=== PATIENT | female | born 1960 | race Caucasian/White ===

== ENCOUNTER 2016-05-20 09:28 | Emergency (ER) | payer OTHER ==
[~2016-05-20] VITALS: Ht 154.9 cm; Wt 81.6 kg
[~2016-05-20 09:28] MED LIST: ALPRAZOLAM2 MG PO; AMOXICILLIN500 M2 PO; AUGMENTIN 875 M1 TAB PO; BUPROPION HCL150 M2 PO; CLONAZEPAM0.5 MG PO; CYMBALTA60 M1 PO; FLEXERIL10 MG PO; GEMFIBROZIL600 M1 PO; GLUCOPHAGE500 M1 PO; IBUPROFEN800 M1 PO; LIORESAL 10MG T10 MG PO; LIPITOR40 M1 PO; LISINOPRIL10 MG PO; LOSARTAN POTAS100 M1 PO; MOTRIN 600 MG600 MG PO; NEURONTIN400 M1 PO; NEXIUM40 M1 PO; NORFLEX100 MG PO; NORVASC5 M1 PO; NOVAPLUS V0.09 MG/Ac INH; PANTOPRAZOLE SO40 MG PO; PERCOCET 325 MG1 TA2 PO; PERCOCET 5-3251 EACH PO; PROAIR HFA0.09 MG/Ac INH; QUETIAPINE FUMA50 M1 PO; REMERON 15MG TA15 MG PO; ROBITUSSIN W/CO10 ML PO; SYMBICORT 16010.2 GM INH; TESSALON PERLE100 MG PO; TORADOL10 MG PO; TRAMADOL50 MG PO; TRAZODONE50 MG PO; VOLTAREN75 MG PO; ZETIA10 M1 PO; ZITHROMAX Z-PA250 M1 PO; ZOLPIDEM TARTRA10 MG PO
[2016-05-20 09:32] VITALS: BP 191/88
--- NOTE | 2016-05-20 09:48 | ED GENERAL ADULT ---
History of Present Illness General Chief Complaint: General Adult Stated Complaint: MED REFILL Source: patient, old records Exam Limitations: no limitations Vital Signs & Intake/Output Vital Signs & Intake/Output Vital Signs Date Time Temp Pulse Resp B/P Pulse O2 O2 Flow FiO2 Ox Delivery Rate 05/20 0932 97.9 122 18 191/88 97 Room Air Allergies Coded Allergies: fish derived (Severe, FACIAL EDEMA 06/18/15) No Known Drug Allergies (03/25/16) Uncoded Allergies: MAYONNAISE (UNKNOWN 11/03/14) Reconcile Medications Albuterol Sulfate (Ventolin Hfa) 0.09 MG/Actuation STONEY 1-2 PUFF INH Q6P PRN COUGH/SOB Amlodipine (Norvasc 5MG Tab) 5 MG TAB 1 TAB PO DAILY BP (Reported) Atorvastatin Calcium (Lipitor) 40 MG TABLET 1 TAB PO DAILY CHOLESTEROL ( Reported) Budesonide/Formoterol Fumarate (Symbicort 160-4.5 Mcg Inhaler) 160 MCG-4.5 MCG/ ACTUATION HFA.AER.AD 2 PUF INH BID COPD (Reported) DULOXETINE HCL (Cymbalta) 60 MG CAPSULE.DR 1 CAP PO DAILY MENTAL HEALTH ( Reported) Duloxetine HCl 30 MG CAPSULE.DR 1 CAP PO DAILY depression/anxiety Esomeprazole (Nexium) 40 MG CAPSULE.DR 1 CAP PO DAILY GI (Reported) Ezetimibe (Zetia) 10 MG TABLET 1 TAB PO DAILY CHOLESTEROL (Reported) Gabapentin (Neurontin) 400 MG CAP 1 CAP PO BID MENTAL HEALTH (Reported) Gabapentin 100 MG CAPSULE 2 CAP PO BID PSYCH Gemfibrozil 600 MG TABLET 1 TAB PO BID CHOLESTEROL (Reported) Ibuprofen 800 MG TABLET 1 TAB PO Q6PRN PRN pain Losartan Potassium 100 MG TAB 1 TAB PO DAILY HEART (Reported) METFORMIN HCL (Metformin Hydrochloride) 500 MG TABLET 1 TAB PO DAILY BLOOD SUGAR (Reported) Oxycodone HCl/Acetaminophen (Percocet 5-325 MG Tablet) 5 MG-325 MG TABLET 1 TAB PO Q6P severe pain Quetiapine Fumarate 50 MG TABLET 3 TAB PO QPM SLEEP (Reported) Quetiapine Fumarate 100 MG TABLET 1 TAB PO QPM DEPRESSION Quetiapine Fumarate 50 MG TABLET 1 TAB PO QPM DEPRESSION Triage Note: PT STATES THAT SHE WAS TOLD BY [facility] TO COME TO ER AND GET 1 WEEK SUPPLY OF HER MEDS, PT HAS APPOINTMENT NEXT WEEK. STATES THAT SHE HAD STOMACH BUG AND MISSED HER LAST APPOINTMENT AND THE MD WILL NOT PRESCRIBE THEM TO HER INTILL NEXT WEEK. Triage Nurses Notes Reviewed? yes Onset: Gradual Duration: week(s): (2) Timing: recent history Injury Environment: home Severity: moderate Severity Numbers: 6 No Modifying Factors: none HPI: Patient is a 56-year-old female with history of anxiety, depression presenting to the emergency department requesting refills of medications. She has an appointment next Wednesday by her clinician told her to come into the emergency department for refills of her medications cut she's been off of them for 2 weeks. Patient reports that she starting to have racing thoughts. Denies any suicidal or homicidal ideation. Denies any nausea or vomiting or fevers. No visual changes. Denies any elevated blood pressure. Denies any abdominal pain and cramping. No urinary symptoms. Denies any hallucinations. Denies any drug or alcohol use. She is looking for a one-week supply of her medications. (ALEXI HANNAH) Past History Travel History Traveled to [place] past 21 day No Medical History Any Pertinent Medical History? see below for history Neurological: SEVERE HEADACHES EENT: NONE Cardiovascular: hypertension, hyperlipidemia, PALPITATIONS 05-10-14 Respiratory: NONE Gastrointestinal: NONE Hepatic: NONE Renal: NONE Musculoskeletal: left ankle and knee sprain MAY 2014 Psychiatric: depression, CUTTING ? 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 No (ALEXI HANNAH) Review of Systems Review of Systems Constitutional: Reports: no symptoms. Comments Review of systems: See HPI, All other systems negative. Constitutional, no chills fever or weight loss HEENT: No visual changes no sore throat no congestion Cardiovascular: No chest pain ,palpitation Skin, no jaundice no rashes Respiratory: No dyspnea cough sputum or hemoptysis GI: No nausea no vomiting : No dysuria No hematuria Muscle skeletal: no back pain, no neck pain, Neurologic: No numbness no confusion no gan Psych: Racing thoughts at times, no suicidal or homicidal ideation Heme/endocrine: No bruising no bleeding no polyuria or polydipsia Immunology: No splenectomy or history of AIDS (ALEXI HANNAH) Physical Exam Physical Exam General Appearance: well developed/nourished, no apparent distress, alert, awake , comfortable Comments: Well-developed well-nourished person in no acute distress HEENT: Nose is atraumatic. Neck: Normal inspection Back: Nontender Cardiovascular: normal JVP Respiratory: No respiratory distress. Extremity: No edema Neuro: Alert oriented x3 Skin: No appreciable rash on exposed skin, skin is warm and dry. Psych: Mood and affect is normal, memory and judgment is normal. Core Measures ACS in differential dx? No CVA/TIA Diagnosis: No Severe Sepsis Present: No Septic Shock Present: No (ALEXI HANNAH) Progress Differential Diagnoses I considered the following diagnoses in my evaluation of the patient: Medication refill, anxiety, depression Plan of Care: Patient given one week's supply of medication. She'll follow up with PCP. Patient nontoxic. Initial ED EKG: none (ALEXI HANNAH) Departure Departure Time of Disposition: 951 Disposition: HOME OR SELF CARE Condition: Stable Clinical Impression Primary Impression: Medication refill Referrals: GUME MULLER,SHAUNA Samuels (PCP/Family) Additional Instructions: Follow-up with your clinician, keep appointment for next Wednesday. Return for worsening symptoms or concerns. Take medications as prescribed. Departure Forms: Customer Survey General Discharge Information Prescriptions: Current Visit Scripts Duloxetine HCl 1 CAP PO DAILY #14 CAP Gabapentin 2 CAP PO BID #32 CAP Quetiapine Fumarate 1 TAB PO QPM #14 TAB Quetiapine Fumarate 1 TAB PO QPM #14 TAB (ALEXI HANNAH) PA/RUBBER TIRE CURER Co-Sign Statement Statement: ED Attending supervision documentation- [X] I saw and evaluated the patient. I have also reviewed all the pertinent lab results and diagnostic results. I agree with the findings and the plan of care as documented in the PA's/RUBBER TIRE CURER's documentation. [] I have reviewed the ED Record and agree with the PA's/RUBBER TIRE CURER's documentation. [] Additions or exceptions (if any) to the PAs/RUBBER TIRE CURER's note and plan are summarized below: [] (ROSSI MCGEE DO) Critical Care Note Critical Care Note Critical Care Time: non-applicable (BENEDICTO SOTELO,ALEXI)
[2016-05-20] MEDS ORDERED: DULOXETINE HCL30 MG PO (09:57)
[2016-05-20] MEDS ORDERED: QUETIAPINE FUM100 M1 PO (09:57)
[2016-05-20] MEDS ORDERED: GABAPENTIN100 M2 PO (09:57)
[2016-05-20] MEDS ORDERED: QUETIAPINE FUMA50 M1 PO (09:57)
== END 2016-05-20 10:00 ==
LOC: ERH 09:28
DX: Z76.0 Encounter for issue of repeat prescription (principal)
CPT/HCPCS: 99281

== ENCOUNTER 2016-05-27 08:58 | Emergency (ER) | payer OTHER ==
[~2016-05-27] VITALS: Ht 154.9 cm; Wt 81.6 kg
[~2016-05-27 08:58] MED LIST changes: +DULOXETINE HCL30 MG PO; +GABAPENTIN100 M2 PO; +QUETIAPINE FUM100 M1 PO
[2016-05-27 09:02] VITALS: BP 166/93
--- NOTE | 2016-05-27 09:27 | ED UPPER/LOWER EXTREMITY COMPL ---
History of Present Illness General Chief Complaint: Low Back Pain/Injury Stated Complaint: LFT LEG PAIN Source: patient, old records Exam Limitations: no limitations Vital Signs & Intake/Output Vital Signs & Intake/Output Vital Signs Date Time Temp Pulse Resp B/P Pulse O2 O2 Flow FiO2 Ox Delivery Rate 05/27 0902 98.2 87 16 166/93 97 Room Air Allergies Coded Allergies: fish derived (Severe, FACIAL EDEMA 06/18/15) No Known Drug Allergies (03/25/16) Uncoded Allergies: MAYONNAISE (UNKNOWN 11/03/14) Reconcile Medications Albuterol Sulfate (Ventolin Hfa) 90 MCG HFA.AER.AD 2 PUF INH Q4-6 PRN PRN COUGH SOB (Reported) Amlodipine Besylate (Norvasc) 5 MG TABLET 1 TAB PO DAILY BP (Reported) Atorvastatin Calcium (Lipitor) 40 MG TABLET 1 TAB PO DAILY CHOLESTEROL ( Reported) Baclofen 10 MG TABLET 1 TAB PO TIDPRN PRN muscle spasm/strain Budesonide/Formoterol Fumarate (Symbicort 160-4.5 Mcg Inhaler) 160 MCG-4.5 MCG/ ACTUATION HFA.AER.AD 2 PUF INH BID COPD (Reported) Duloxetine HCl (Cymbalta) 60 MG CAPSULE.DR 1 CAP PO DAILY MENTAL HEALTH ( Reported) Duloxetine HCl 30 MG CAPSULE.DR 1 CAP PO DAILY depression/anxiety Esomeprazole (Nexium) 40 MG CAPSULE.DR 1 CAP PO DAILY GI (Reported) Ezetimibe (Zetia) 10 MG TABLET 1 TAB PO DAILY CHOLESTEROL (Reported) Gabapentin (Neurontin) 400 MG CAPSULE 1 CAP PO BID MENTAL HEALTH (Reported) Gabapentin 100 MG CAPSULE 2 CAP PO BID PSYCH Gemfibrozil 600 MG TABLET 1 TAB PO BID CHOLESTEROL (Reported) Ibuprofen 800 MG TABLET 1 TAB PO Q6PRN PRN pain Losartan Potassium 100 MG TABLET 1 TAB PO DAILY HEART (Reported) Metformin Hydochloride (Glucophage) 500 MG TABLET 1 TAB PO DAILY BLOOD SUGAR (Reported) Oxycodone HCl/Acetaminophen (Percocet 5-325 MG Tablet) 5 MG-325 MG TABLET 1 TAB PO Q6P severe pain Quetiapine Fumarate 50 MG TABLET 3 TAB PO QPM SLEEP (Reported) Quetiapine Fumarate 100 MG TABLET 1 TAB PO QPM DEPRESSION Quetiapine Fumarate 50 MG TABLET 1 TAB PO QPM DEPRESSION Triage Note: PT STATES SHE HAS LEFT LEG PAIN AND NEEDS A REFERAL TO [facility] Triage Nurses Notes Reviewed? yes Onset: month Duration: week(s):, constant, continues in ED Timing: recent history Severity: mild Pain/Injury Location: Left: Knee. Method of Injury: fall Modifying Factors: Improves With: pain medication. Worsens With: movement. LMP (ages 10-50): post menopausal : No Patient currently breastfeeds: No HPI: 6 weeks prior to admission patient fell sustaining left foot fractures. She complains of continued left posterior knee pain described as sharp worse with movement turning bending improved with rest medication. Denies new injury fever chills nausea vomiting diarrhea abdominal pain chest pain shortness breath headache dysuria rash bleeding Past History Travel History Traveled to [place] past 21 day No Medical History Any Pertinent Medical History? see below for history Neurological: SEVERE HEADACHES EENT: NONE Cardiovascular: hypertension, hyperlipidemia, PALPITATIONS 05-10-14 Respiratory: NONE Gastrointestinal: NONE Hepatic: NONE Renal: NONE Musculoskeletal: left ankle and knee sprain MAY 2014 Psychiatric: depression, CUTTING ? 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 No Review of Systems Review of Systems Constitutional: Reports: no symptoms. EENTM: Reports: no symptoms. Respiratory: Reports: no symptoms. Cardiovascular: Reports: no symptoms. Gastrointestinal/Abdominal: Reports: no symptoms. Genitourinary: Reports: no symptoms. Musculoskeletal: Reports: see HPI, joint pain. Skin: Reports: no symptoms. Neurological/Psychological: Reports: no symptoms. Hematologic/Endocrine: Reports: no symptoms. Immunological: Reports: no symptoms. All Other Systems: Reviewed and Negative Physical Exam Physical Exam General Appearance: well developed/nourished, alert, awake, anxious, mild distress Head: atraumatic, normal appearance Eyes: Bilateral: normal appearance, PERRL, EOMI. Ears, Nose, Throat: normal pharynx, normal ENT inspection, hearing grossly normal Neck: normal inspection, supple, full range of motion, no midline tenderness Cardiovascular/Respiratory: regular rate/rhythm Peripheral Pulses: 4+ carotid (R), 4+ carotid (L) Back: normal inspection, normal range of motion, no vertebral tenderness Shoulder Left: normal range of motion, normal inspection Shoulder Right: normal range of motion, normal inspection Elbow Left: normal range of motion, normal inspection Elbow Right: normal range of motion, normal inspection Hand Left: normal inspection, normal range of motion Hand Right: normal inspection, normal range of motion Upper Extremity Reflexes: 2+: bicep (R), bicep (L). Leg Left: normal range of motion, normal inspection Leg Right: normal range of motion, normal inspection Hip Left: normal range of motion, normal inspection Hip Right: normal range of motion, normal inspection Knee Left: normal range of motion, normal inspection, soft tissue tenderness ( posterior knee) Knee Right: normal range of motion, normal inspection Foot Left: normal inspection, normal range of motion Foot Right: normal inspection, normal range of motion Lower Extremity Reflexes: 2+: knee (R), knee (L). Neurologic/Tendon: normal sensation, normal motor functions, normal tendon functions Skin: intact, normal color, warm/dry Lymphatic: no anterior cervical megan Progress Differential Diagnosis: contusion, fracture, sprain Plan of Care: Orders Procedure Date/time Status XRY-KNEE COMPLETE LEFT 05/27 921 Active Diagnostic Imaging: Viewed by Me: Radiology Read. Discussed w/RAD: Radiology Read. Radiology Impression: no acute abnormality, no fracture Departure Departure Time of Disposition: 1010 Disposition: HOME OR SELF CARE Condition: Stable Clinical Impression Primary Impression: Strain of knee and leg, left Qualifiers: Encounter type: initial encounter Qualified Code: S86.912A - Strain of unspecified muscle(s) and tendon(s) at lower leg level, left leg, initial encounter Referrals: ADOLFO MULLER,CHELITA DUNAWAY MD,SHAUNA Samuels (PCP/Family) Departure Forms: Customer Survey General Discharge Information Prescriptions: Current Visit Scripts Baclofen 1 TAB PO TIDPRN PRN muscle spasm/strain #30 TAB Procedures Splinting Location: L knee Manual Alignment Performed: No Pre-Made Type: renay bandage Splint Applied By: splint applied by other Pre-Proc Neuro Vasc Exam: normal Post-Proc Neuro Vasc Exam: normal
[2016-05-27] MEDS ORDERED: VENTOLIN HFA18 GM INH (10:10)
[2016-05-27] MEDS ORDERED: BACLOFEN10 M1 PO (10:17)
--- NOTE | 2016-05-27 10:36 | RADIOLOGY REPORT ---
EXAMINATION: XR KNEE, LEFT CLINICAL INFORMATION: Left posterior knee. Pain COMPARISON: None TECHNIQUE: Four views of the left knee. FINDINGS: Bones and soft tissues are normal. No fracture or joint effusion. Alignment is anatomic. Joint spaces are well maintained. No abnormal soft tissue calcification. IMPRESSION: Normal left knee.
== END 2016-05-27 10:57 ==
LOC: ERH 08:58
DX: S86.912A Strain of unspecified muscle(s) and tendon(s) at lower leg level, left leg, initial encounter (principal); W19.XXXA Unspecified fall, initial encounter
CPT/HCPCS: 73562-LT

== ENCOUNTER 2017-05-06 11:37 | Emergency (ER) | payer OTHER ==
[~2017-05-06] VITALS: Ht 154.9 cm; Wt 64.0 kg
[~2017-05-06 11:37] MED LIST changes: +BACLOFEN10 M1 PO; +HYCET 7.5 MG-3473 ML PO; +VENTOLIN HFA18 GM INH
--- NOTE | 2017-05-06 12:10 | ED HEADACHE COMPLAINT ---
History of Present Illness General Chief Complaint: Headache Stated Complaint: 11/26 HEADAHE PAIN X 1 DAY Source: patient Exam Limitations: no limitations Vital Signs & Intake/Output Vital Signs & Intake/Output Vital Signs Date Time Temp Pulse Resp B/P B/P Pulse O2 O2 Flow FiO2 Mean Ox Delivery Rate 05/06 1309 97.5 89 16 150/94 96 Room Air 05/06 1143 97.8 130 20 155/91 95 Room Air Allergies Coded Allergies: fish derived (Severe, FACIAL EDEMA 06/18/15) Uncoded Allergies: MAYONNAISE (UNKNOWN 11/03/14) Reconcile Medications Amlodipine Besylate 5 MG TABLET 1 TAB PO DAILY HTN (Reported) Budesonide/Formoterol Fumarate (Symbicort 160-4.5 Mcg Inhaler) 160 MCG-4.5 MCG/ ACTUATION HFA.AER.AD 2 PUF INH BID PRN COPD (Reported) Duloxetine HCl 30 MG CAPSULE.DR 1 CAP PO DAILY depression/anxiety Ergocalciferol (Vitamin D2) (Vitamin D2) 50,000 UNIT CAPSULE 1 CAP PO QW SUPPLEMENT (Reported) TAKES EVERY WEDNESDAY Esomeprazole (Nexium) 40 MG CAPSULE.DR 1 CAP PO QHS GI (Reported) Gabapentin 100 MG CAPSULE 1 CAP PO BID MOOD STABILIZATION (Reported) Losartan Potassium 100 MG TABLET 1 TAB PO DAILY HTN (Reported) Quetiapine Fumarate 100 MG TABLET 1 TAB PO QPM DEPRESSION Quetiapine Fumarate 50 MG TABLET 1 TAB PO QPM DEPRESSION Triage Note: PT TO ED C/O SHARP PAIN TO LEFT SIDE OF HEAD. STARTED LAST NIGHT, COMES AND GOES, GETTING WORSE IN INTENSITY AND FREQUENCY, MORE CONSTANT. PT WAS SEEN HERE 03/31 AND SENT TO [facility] FOR SUBDURAL HEMATOMA. PT STATES SHE HAD IT "DRAINED" AND WAS DISCHARGED HOME 04/10. STARTED WITH THIS HEAD PAIN LAST NIGHT, CALLED HER MD WHO ADVISED HER TO COME TO ED FOR EVAL. PT TAKEN TO ROOM 4. Triage Nurses Notes Reviewed? 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 or patient was initially evaluated at [facility] however transferred to [facility] patient was evaluated by neurosurgery where intracranial drainage was performed patient states that after the carlie were removed outpatient she has not had any symptoms however in the past week patient is complaining of the same left-sided location of previous ICH of a vaginal onset of waxing and waning headache over the last 12 hours symptoms have progressively worse in terms of intensity and duration, patient has tried Tylenol with no relief of symptoms denies any mechanism of injury recent trauma denies any fever chills neck pain blurred vision visual acuity changes slurred speech facial droop extremity weakness paresthesia or acute onset or thunderclap headache or worse headache of life. Denies any nausea or vomiting Patient is experiencing localized left parietal throbbing pulsatile pain Past History Travel History Traveled to [place] past 21 day No Medical History Any Pertinent Medical History? see below for history Neurological: SEVERE HEADACHES subdural hematoma EENT: NONE Cardiovascular: hypertension, hyperlipidemia, PALPITATIONS 05-10-14 Respiratory: obstructive sleep apnea Gastrointestinal: GERD Hepatic: NONE Renal: NONE Musculoskeletal: left ankle and knee sprain MAY 2014 Psychiatric: depression, CUTTING ? 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 No Review of Systems Review of Systems Constitutional: Reports: no symptoms. Eyes: Reports: no symptoms. Ears, Nose, Throat, Mouth: Reports: no symptoms. Respiratory: Reports: no symptoms. Cardiovascular: Reports: no symptoms. Gastrointestinal/Abdominal: Reports: no symptoms. Genitourinary: Reports: no symptoms. Musculoskeletal: Reports: no symptoms. Skin: Reports: no symptoms. Neurological/Psychological: Reports: see HPI, headache. Hematologic/Endocrine: Reports: no symptoms. Endocrine: Reports: no symptoms. Immunologic/Allergic: Reports: no symptoms. All Other Systems: Reviewed and Negative Physical Exam Physical Exam General Appearance: well developed/nourished, alert, anxious Head: atraumatic, NO TEMPORAL TENDERNESS ON PALPATION OF LEFT OR RIGHT SIDE Eyes: Bilateral: normal appearance, PERRL, EOMI. Ears, Nose, Throat: normal pharynx, normal ENT inspection Neck: normal inspection, supple, full range of motion Respiratory: normal breath sounds, chest non-tender, no respiratory distress Cardiovascular: tachycardia Gastrointestinal: normal bowel sounds, soft, non-tender Back: normal inspection Extremities: normal inspection, normal capillary refill Psychiatric: awake, alert, oriented x 3 Cranial Nerves: normal hearing, normal speech, PERRL Coordination/Gait: normal finger to nose, normal gait Motor/Sensory: no motor/sensory deficits Skin: intact, normal color, warm/dry Comments: Cranial nerves II through XII intact Core Measures Sepsis Present: No Sepsis Focused Exam Completed? No Progress Differential Diagnosis: carotid dissection, cav sinus thromb, cluster MUNIZ, encephalitis, IC mass/tumor, intracranial Hem., meningitis, migraine MUNIZ, musculoskeletal pain, sinusitis, SSS thrombosis, subarach. Hem., tension MUNIZ, temporal arteritis, TMJ syndrome, viral cephalgia Plan of Care: Orders Procedure Date/time Status EKG 05/06 1149 Active On initial examination patient is resting comfortably at bedside no neurological deficit on exam patient denies any mechanism of injury CT scan will be ordered Patient will be initially treated for migraine headache CT scan was unremarkable for acute injury, discuss results with patient No concerns of subarachnoid hemorrhage patient's neck was settled no thunderclap headache concerns no worse headache of life described, patient upon discharge looks well no apparent distress and has relief of her migraine with medications administered in the emergency room. Patient was strongly advised to follow-up with discharge instructions and plan and she will comply Diagnostic Imaging: Viewed by Me: CT Scan. Radiology Impression: no acute abnormality, no fracture Initial ED EKG: SINUS TACHYCARDIA 116 BPM Comments: PATIENT: YAHAIRA TERAN PRESENT AGE: 57 PATIENT ACCOUNT NO: [id number] : 62 LOCATION: [facility] ORDERING PHYSICIAN: David SOTELO SERVICE DATE: 05/06/171208 EXAM TYPE: CAT - CT HEAD WO IV CONTRAST EXAMINATION: CT HEAD WITHOUT CONTRAST CLINICAL INFORMATION: Headache. History of subdural hematoma. COMPARISON: Head CT of 03/31/2017. TECHNIQUE: Contiguous axial imaging was performed from the skull base to vertex without intravenous administration of contrast. DLP: 537 mGy-cm FINDINGS: Brain parenchyma: No acute findings. There is mild patchy hypoattenuation of supratentorial white matter, suggestive of chronic mild microangiopathy. Mcconnell-white matter differentiation is well preserved. No evidence of an acute major vascular territory infarction, edema, intracranial hemorrhage or extraaxial fluid collection. There is a yang hole of the left frontal skull without recurrent subdural hematoma. No evidence of intracranial mass or midline shift. Mild atherosclerotic calcific and of the left vertebral artery and cavernous carotid arteries. Cerebrospinal fluid spaces: Lateral ventricles have normal size and configuration. No hydrocephalus. The previously noted subfalcine herniation has resolved. Cerebellum and brainstem: No acute findings. 4th ventricle is midline in position. Calvarium and temporomandibular joints: Skull base is unremarkable. Mastoid air cells and middle ear cavities are well aerated. Orbits, globes, and paranasal sinuses: The visualized portions of the paranasal sinuses are well aerated. The majority of the orbits were excluded from the [id number]. Other findings: No acute findings in the visualized extracranial soft tissues. IMPRESSION: 1. No acute intracranial pathology. 2. The previously noted left subdural hematoma has resolved and a yang hole is seen in the left frontal skull. DICTATED BY: Sudarshan Bolton MD DATE/TIME DICTATED:05/06/171308 MANAGEMENT ADVISOR:KUNAL DATE/TIME TRANSCRIBED:05/06/171308 Is good practice for the inevitable know what is a lot of what Departure Departure Disposition: HOME OR SELF CARE Condition: Stable Clinical Impression Primary Impression: Migraine Referrals: Leti MULLER,Ervin Samuels (PCP/Family) Additional Instructions: As discussed begin the prescription meloxicam for migraine headache relief, begin the prescription of Imitrex for secondary headache relief and the prescription of ZEBUTAL and Reglan for your breakthrough headache relief, prescription waiting at [facility]. On Wednesday if no better follow-up with neurologist Dr. Sneed for further evaluation treatment follow-up with your neurosurgery appointment as you have one coming up. If symptoms worsen or if YOU develop new concerning symptom return to the emergency room Departure Forms: Customer Survey General Discharge Information Prescriptions: Current Visit Scripts Metoclopramide HCl (Reglan) 1 TAB PO 4 TIMES/DAY PRN MIGRIANE #15 TAB 30 minutes before meals and bedtime Sumatriptan Succinate (Imitrex) 1 TAB PO AD PRN MIGRAINE #9 TAB Butalb/Acetaminophen/Caffeine (Zebutal 50-325-40 MG Capsule) 1 TAB PO TID PRN MIGRAINE #15 TAB Meloxicam (Mobic) 1 TAB PO DAILY PRN MIGRAINE #10 TAB
[2017-05-06] MEDS ORDERED: VITAMIN D250000 UNIT PO (13:08)
[2017-05-06] MEDS ORDERED: LOSARTAN POTAS100 M1 PO (13:08)
[2017-05-06] MEDS ORDERED: AMLODIPINE BESYL5 M1 PO (13:08)
--- NOTE | 2017-05-06 13:20 | CT SCAN REPORT ---
EXAMINATION: CT HEAD WITHOUT CONTRAST CLINICAL INFORMATION: Headache. History of subdural hematoma. COMPARISON: Head CT of 03/31/2017. TECHNIQUE: Contiguous axial imaging was performed from the skull base to vertex without intravenous administration of contrast. DLP: 537 mGy-cm FINDINGS: Brain parenchyma: No acute findings. There is mild patchy hypoattenuation of supratentorial white matter, suggestive of chronic mild microangiopathy. Mcconnell-white matter differentiation is well preserved. No evidence of an acute major vascular territory infarction, edema, intracranial hemorrhage or extraaxial fluid collection. There is a yang hole of the left frontal skull without recurrent subdural hematoma. No evidence of intracranial mass or midline shift. Mild atherosclerotic calcific and of the left vertebral artery and cavernous carotid arteries. Cerebrospinal fluid spaces: Lateral ventricles have normal size and configuration. No hydrocephalus. The previously noted subfalcine herniation has resolved. Cerebellum and brainstem: No acute findings. 4th ventricle is midline in position. Calvarium and temporomandibular joints: Skull base is unremarkable. Mastoid air cells and middle ear cavities are well aerated. Orbits, globes, and paranasal sinuses: The visualized portions of the paranasal sinuses are well aerated. The majority of the orbits were excluded from the [id number]. Other findings: No acute findings in the visualized extracranial soft tissues. IMPRESSION: 1. No acute intracranial pathology. 2. The previously noted left subdural hematoma has resolved and a yang hole is seen in the left frontal skull.
[2017-05-06] MEDS ORDERED: IMITREX50 M1 PO (14:03)
[2017-05-06] MEDS ORDERED: ZEBUTAL 50-3251 EACH PO (14:03)
[2017-05-06] MEDS ORDERED: REGLAN10 M1 PO (14:03)
[2017-05-06] MEDS ORDERED: MOBIC15 M1 PO (14:03)
[2017-05-06 14:19] VITALS: BP 148/88
== END 2017-05-06 14:20 ==
LOC: ERH 11:37
DX: G43.909 Migraine, unspecified, not intractable, without status migrainosus (principal)
CPT/HCPCS: 93005; 93010; 96372; J3030

== ENCOUNTER 2017-08-20 10:39 | Emergency (ER) | payer OTHER ==
[~2017-08-20] VITALS: Ht 154.9 cm; Wt 64.9 kg
[~2017-08-20 10:39] MED LIST changes: +AMLODIPINE BESYL5 M1 PO; +IMITREX50 M1 PO; +MOBIC15 M1 PO; +REGLAN10 M1 PO; +VITAMIN D250000 UNIT PO; +ZEBUTAL 50-3251 EACH PO
--- NOTE | 2017-08-20 11:07 | ED AMS/SEIZURE/WEAK/DIZZY ---
History of Present Illness General Chief Complaint: Dizziness Stated Complaint: DIZZY, HIGH BLOOD PRESSURE, +NV Source: patient Exam Limitations: no limitations Allergies Coded Allergies: fish derived (Severe, FACIAL EDEMA 06/18/15) No Known Drug Allergies (Intermediate, NONE 08/20/17) Uncoded Allergies: MAYONNAISE (UNKNOWN 11/03/14) Reconcile Medications Amlodipine Besylate 5 MG TABLET 1 TAB PO DAILY HTN (Reported) Budesonide/Formoterol Fumarate (Symbicort 160-4.5 Mcg Inhaler) 160 MCG-4.5 MCG/ ACTUATION HFA.AER.AD 2 PUF INH BID PRN COPD (Reported) Duloxetine HCl 30 MG CAPSULE.DR 1 CAP PO DAILY depression/anxiety Esomeprazole (Nexium) 40 MG CAPSULE.DR 1 CAP PO QHS GI (Reported) Gabapentin 100 MG CAPSULE 2 CAP PO BID MOOD STABILIZATION (Reported) Losartan Potassium 100 MG TABLET 1 TAB PO DAILY HTN (Reported) Meclizine HCl 25 MG TABLET 1 TAB PO TIDPRN PRN dizziness Multivitamin (Daily Value) 1 EACH TABLET 1 TAB PO DAILY VITAMIN SUPPORT ( Reported) Quetiapine Fumarate 100 MG TABLET 1 TAB PO QPM DEPRESSION Quetiapine Fumarate 50 MG TABLET 1 TAB PO QPM DEPRESSION Scopolamine (Transderm-Scop) 1 MG/3 DAY PATCH.TD.3 1 PAT TD Q3D PRN dizziness Triage Note: C/O DIZZINESS, HIGH BP SINCE 0500 WITH VOMITNG (BILE). SENT BY [facility]. DENIES ABDOMINAL OR CHEST PAIN. PMH: SUBDURAL HEMATOMA 04/04, S/P FALL. Triage Nurses Notes Reviewed? yes Onset: Gradual Duration: hour(s): Timing: recent history Injury Environment: home Severity: moderate HPI: 57yo female with hx of HTN, DM, SDH 04/04 presents to ED complaining of dizziness beginning at 0430 this morning. Patient states that it feels like her body is spinning. Dizziness has been intermittent, worse with positional changes. Patient also has associated nausea and episodes of bilious vomiting. Patient has an aide who visits her at home, had high blood pressure at home and was recommended to report here to the ER. Patient reports that since her subdural surgery in March she has had some episodes of blacking out. Patient states 2 days ago when she got up and was walking down the [place] she blacked out. At that time she fell to the ground, she does not believe her head, episode lasted seconds. She reports 1 other fall last week at which time she did not hit her head, she landed on her hands. Patient states she drinks alcohol about 3-5 days per week however not daily. She reports no history of alcohol withdrawal symptoms, states she is not currently going through withdrawal. Last drink was 2 days ago. Patient denies headache, visual changes, abdominal pain, chest pain, dyspnea, fevers. (Marilin SOTELO,Emilee Ellis) Vital Signs & Intake/Output Vital Signs & Intake/Output Vital Signs Date Time Temp Pulse Resp B/P B/P Pulse O2 O2 Flow FiO2 Mean Ox Delivery Rate 08/20 1825 182/80 08/20 1719 99.5 76 18 186/98 97 Room Air Room Air 08/20 1417 98.8 81 18 176/84 94 Room Air Room Air 08/20 1134 170/90 08/20 1048 97.1 79 18 196/70 98 Room Air (Moon MULLER,Jef Connolly) Past History Travel History Traveled to [place] past 21 day No Medical History Any Pertinent Medical History? see below for history Neurological: SEVERE HEADACHES subdural hematoma EENT: NONE Cardiovascular: hypertension, hyperlipidemia, PALPITATIONS 05-10-14 Respiratory: obstructive sleep apnea Gastrointestinal: GERD Hepatic: NONE Renal: NONE Musculoskeletal: left ankle and knee sprain MAY 2014 Psychiatric: depression, CUTTING ? BIPOLAR DISORDER OVERDOSE IN 2008 Endocrine: DIABETES TYPE 2 Blood Disorders: NONE Cancer(s): NONE STRATEGY LEAD/Reproductive: NONE History of MRSA: No History of VRE: No History of CDIFF: No Tetanus Vaccine: 10/31/14 Surgical History Surgical History: none Psychosocial History Who do you live with Family Services at Home Nursing What is your primary language Syriac Tobacco Use: Current Daily Use Daily Tobacco Use Amount/Type: => 5 Cigarettes daily ETOH Use: occasional use Family History Hx Contributory? No (Emilee Harris) Review of Systems Review of Systems Constitutional: Reports: see HPI. EENTM: Reports: no symptoms. Respiratory: Reports: no symptoms. Cardiovascular: Reports: see HPI. GI: Reports: see HPI. Genitourinary: Reports: no symptoms. Musculoskeletal: Reports: no symptoms. Skin: Reports: no symptoms. Neurological/Psychological: Reports: see HPI. Hematologic/Endocrine: Reports: no symptoms. Immunologic/Allergic: Reports: no symptoms. All Other Systems: Reviewed and Negative (Marilin SOTELO,Emilee Ellis) Physical Exam Physical Exam General Appearance: well developed/nourished, no apparent distress, alert, awake Head: atraumatic, normal appearance Eyes: Bilateral: normal appearance, PERRL, EOMI. Ears, Nose, Throat: normal pharynx, normal ENT inspection, hearing grossly normal Neck: normal inspection, supple, full range of motion Respiratory: normal breath sounds, no respiratory distress, lungs clear Cardiovascular: regular rate/rhythm, normal peripheral pulses Peripheral Pulses: 2+ radial (R), 2+ radial (L) Gastrointestinal: normal bowel sounds, soft, non-tender, no organomegaly Back: normal inspection, normal range of motion Extremities: normal range of motion Neurologic/Psych: awake, alert, oriented x 3, food general manager II-XII nml as tested, cerebellar testing WNL Skin: intact, normal color, warm/dry Core Measures ACS in differential dx? Yes CVA/TIA Diagnosis No Sepsis Present: No Sepsis Focused Exam Completed? No (Marilin SOTELO,Emilee Ellis) Progress Differential Diagnosis: arrythmia, alcohol intoxication, anemia, benign positional vertigo, CVA/stroke, dehydration, drug intoxication, electrolyte imbalance, hypoglycemia, intracranial Hem., intracranial mass/tumor, post- traumatic vertigo, subarachnoid Hem. Diagnostic Imaging: Viewed by Me: CT Scan. Discussed w/RAD: CT Scan. Initial ED EKG: sinus rhythm @82bpm, nonspecific ST changes Prior EKG: unchanged (05/06/17) (Marilin SOTELO,Emilee Ellis) Plan of Care: Orders Procedure Date/time Status Regular Diet 08/21 B Active ETHANOL 08/20 1219 Complete URINE DRUG SCREEN FOR ER ONLY 08/[address] CERV SPINE WO IV CONTRAST 08/[address] HEAD WO IV CONTRAST 08/20 1106 Active URINALYSIS 08/20 1105 Complete TROPONIN LEVEL 08/20 1105 Complete COMPREHENSIVE METABOLIC PANEL 08/20 1105 Complete CBC WITHOUT DIFFERENTIAL 08/20 1105 Complete EKG 08/20 1105 Active Laboratory Tests 08/20/17 1519: Urine Opiates Screen < 100, Methadone Screen 41, Barbiturate Screen < 60, Ur Phencyclidine Scrn < 6.00, Amphetamines Screen < 100, U Benzodiazepines Scrn < 85, Urine Cocaine Screen < 50, Urine Cannabis Screen 21.00, Urine Color YEL, Urine Clarity CLEAR, Urine pH 6.0, Ur Specific [place] >= 1.030, Urine Protein NEG, Urine Ketones NEG, Urine Nitrite NEG, Urine Bilirubin NEG, Urine Urobilinogen 0.2, Ur Leukocyte Esterase NEG, Ur Microscopic EXAM NOT REQUIRED, Urine Hemoglobin NEG, Urine Glucose NEG 08/20/17 1219: Anion Gap 13, Estimated GFR > 60, BUN/Creatinine Ratio 21.7, Glucose 146 H, Calcium 9.6, Total Bilirubin 0.8, AST 27, ALT 25, Alkaline Phosphatase 112, Troponin I < 0.01, Total Protein 7.2, Albumin 4.2, Globulin 3.0, Albumin/ Globulin Ratio 1.4, Serum Alcohol < 10.0 08/20/17 1215: CBC w Diff NO MAN DIFF REQ, RBC 4.12 L, MCV 97.6, MCH 33.2 H, MCHC 34.0, RDW 12.8, MPV 7.8, Gran % 60.0, Lymphocytes % 32.5, Monocytes % 5.6, Eosinophils % 1.4, Basophils % 0.5, Absolute Granulocytes 4.4, Absolute Lymphocytes 2.4, Absolute Monocytes 0.4, Absolute Eosinophils 0.1, Absolute Basophils 0 08/20/17 1145: Serum Alcohol Cancelled Patient's blood work is within normal limits, no acute abnormality. EKG is in sinus rhythm, troponin enzyme negative. Patient's head CT scan shows no acute abnormality, no intracranial hemorrhage detected. Patient does not feel improvement and dizziness following scopolamine patch. Patient medicated with meclizine and her home blood pressure medications that she did not take this morning. 20 minutes following these medications patient does report significant improvement in her dizziness. Patient ambulated down the hallway by myself with gait, no abnormality. She is neurologically intact, no focal neurologic deficit. Patient feels ready to go home at this time, she was given strict return precautions. Patient to follow up with her primary care doctor next week. She was instructed to continue taking her blood pressure medication as prescribed. The patient agrees with plan of care. The patient was discussed with Dr. Mustafa who agrees with this plan. (Marilin SOTELO,Emilee Ellis) (Moon MULLER,Jef Connolly) Departure Departure Disposition: HOME OR SELF CARE Condition: Stable Clinical Impression Primary Impression: Dizziness Secondary Impressions: Hypertension Qualifiers: Hypertension type: essential hypertension Qualified Code: I10 - Essential (primary) hypertension Nausea & vomiting Qualifiers: Vomiting type: unspecified Vomiting Intractability: non-intractable Qualified Code: R11.2 - Nausea with vomiting, unspecified Referrals: Ervin Landeros MD (PCP/Family) Additional Instructions: Take your blood pressure medication when you got home. Take meclizine as prescribed as needed for dizziness. You may also apply scopolamine patch as needed for dizziness. Return with worsening symptoms or concerns. Please note that there might be incidental findings in your evaluation that are unrelated to the current emergency department visit. Please notify your primary care doctor about this emergency department visit in order to obtain and review all of the testing performed so that these incidental findings can be monitored as needed. If you had an x-ray performed, please understand that some fractures may not be seen on the initial set of x-rays. If your symptoms persist you might need a repeat set of x-rays to check for such a fracture. If you had a laceration evaluated, please understand that foreign bodies such as glass or wood may not be visible to the naked eye or on plain x-rays. If the wound becomes red, swollen, increasingly more painful or if there is any drainage from the wound, please have it reevaluated by a physician for the possibility of a retained foreign body. If you're unable to follow up as outlined in the discharge instructions please return to the emergency department. Thank you for choosing the [facility] Emergency Department for your care. It was a pleasure to serve you today. Departure Forms: Customer Survey General Discharge Information Prescriptions: Current Visit Scripts Meclizine HCl 1 TAB PO TIDPRN PRN dizziness #30 TAB Scopolamine (Transderm-Scop) 1 PAT TD Q3D PRN dizziness #15 PAT (Marilin SOTELO,Emilee Ellis) PA/FOREST LAW AND POLICY PROFESSOR Co-Sign Statement Statement: ED Attending supervision documentation- [] I saw and evaluated the patient. I have also reviewed all the pertinent lab results and diagnostic results. I agree with the findings and the plan of care as documented in the PA's/FOREST LAW AND POLICY PROFESSOR's documentation. [X] I have reviewed the ED Record and agree with the PA's/FOREST LAW AND POLICY PROFESSOR's documentation. [] Additions or exceptions (if any) to the PAs/FOREST LAW AND POLICY PROFESSOR's note and plan are summarized below: [] (Moon MULLER,Jef Connolly)
[2017-08-20] MEDS ORDERED: DAILY VALUE1 EACH PO (12:15)
[2017-08-20 12:22] LABS: ABSOLUTE BASOPHIL COUNT 0 /CUMM (0.0-0.2); ABSOLUTE EOSINOPHIL COUNT 0.1 /CUMM (0.0-0.7); ABSOLUTE GRANULOCYTE CT 4.4 /CUMM (1.4-6.5); ABSOLUTE LYMPH COUNT 2.4 /CUMM (1.2-3.4); ABSOLUTE MONOCYTE COUNT 0.4 /CUMM (0.10-0.60); BASOPHIL % 0.5 % (0.0-2.0); EOSINOPHIL % 1.4 % (0-5); HEMATOCRIT 40.2 % (37-47); MEAN CORPUSCULAR HGB 33.2 PG (27.0-31.0); MEAN CORPUSCULAR VOLUME 97.6 FL (81.0-99.0); MEAN PLATELET VOLUME 7.8 FL (7.4-10.4); PLATELET COUNT 304 /CUMM (130-400); RBC DISTRIBUTION WIDTH 12.8 % (11.5-14.5); RED BLOOD CELL CT 4.12 /CUMM (4.20-5.40); WHITE BLOOD CELL COUNT 7.3 /CUMM (4.8-10.8)
[2017-08-20] MEDS ORDERED: TRANSDERM-SCOP1 EAC1 TD (17:15)
[2017-08-20] MEDS ORDERED: MECLIZINE HCL25 MG PO (17:15)
[2017-08-20 18:25] VITALS: BP 182/80
--- NOTE | 2017-08-22 08:00 | CT SCAN REPORT ---
EXAMINATION: NONCONTRAST HEAD CT NONCONTRAST CERVICAL SPINE CT INDICATION INFORMATION: Hypertension. Dizziness. History of subdural hematoma. COMPARISON: 05/25/2017 TECHNIQUE: Separate noncontrast CT examinations of the head and cervical spine were performed. Coronal and sagittal images were created for each examination at the technologist workstation. DLP: 944 mGy-cm FINDINGS: Head: There is no evidence of acute intracranial hemorrhage or territorial infarction. No abnormal mass effect or midline shift is seen. Avila to white matter differentiation is well preserved. No extra-axial fluid collections are identified. No hydrocephalus. No significant volume loss. There is no abnormal attenuation within the brain parenchyma. Left frontal yang hole again noted. No acute osseous or soft tissue abnormality.. The mastoid air cells and visualized portions of the paranasal sinuses are well aerated. Cervical spine: There is straightening of the normal cervical lordosis. There is otherwise anatomic alignment of the vertebral bodies and posterior elements. The atlantoaxial and atlantooccipital articulations are intact. Vertebral body heights are maintained. There is multilevel intervertebral disc space narrowing with endplate osteophyte formation and facet arthropathy. No evidence of acute fracture. No prevertebral soft tissue swelling. Calcified granuloma in the right lung apex. There is a left apical 0.3 cm pulmonary nodule, series 9 image 261. This is not definitively seen on the prior chest CT from 03/14/2014. The thyroid gland is unremarkable. IMPRESSION: 1. No acute intracranial findings. 2. No acute fracture or malalignment of the cervical spine. Mild multilevel degenerative changes. 3. 0.3 cm left apical pulmonary nodule, which is not seen on the previous chest CT from 2013. If this is a high-risk patient, consider [address] follow-up.
== END 2017-08-20 19:10 ==
LOC: ERH 10:39
PROVIDERS: Physician Assistant
DX: R42 Dizziness and giddiness (principal); I10 Essential (primary) hypertension; R11.2 Nausea with vomiting, unspecified
CPT/HCPCS: 80307; 81003; 93005; 93010; 96374; G0480; J2405